=== PATIENT | male | born 1955 | race Caucasian/White ===

== ENCOUNTER → 2024-12-17 | Outpatient (CLI) | payer OTHER ==
[2024-12-17] MEDS: REGADENOSON 0.4 MG/5 ML PF SYG IVP ONE (15:40)
--- NOTE | 2024-12-17 18:02 | HMCSR ---
APPROVED REPORT Height: 5 ft 10in Weight: 219 lbs TEST INDICATIONS Ventricular Tachycardia The imaging protocol used to acquire images was Rest Tc-99m/stress Tc-99m 1 day Consent: The procedure was explained and understood by the patient. Informerd consent was witnessed Jaimie Fregoso RN First, low dose rest was performed then high dose stress. RESTING DATA: The resting ekg shows: NSR Rest SPECT myocardial perfusion imaging was performed in supine position 63 minutes following the int ravenous injection of 10.7 mCi of Tc-99 Sestamibi. Time of rest injection: 08:21: Date: 12/17/2024 Time of rest imagin:24: Date: 12/17/2024 PHARMACOLOGIC STRESS: Pharmacologic stress test was performed by injecting regadenoson 0.4 mg IV push followed by the intra venous injection of 32.1 mCi of Tc-99 Sestamibi. Time of stress injection: 09:53: Date: 12/17/2024 Time of stress imagin:35: Date: 12/17/2024 Heart Rate at time of stress injection: 64 bpm. Gated Stress SPECT was performed 102 minutes after stress injection. The images were gated to evaluate regional wall motion and calculate left ventricular ejection fracti on. STRESS DETAILS Reason for Termination: Infusion complete Stress Symptoms: Dyspnea Max HR Achieved: 61 bpm % of APMHR Achieved: 40 Max Blood Pressure: 142/92 mmHg Stress ECG: NSR Study quality was good. Lung uptake was Normal. Artifact: increased GI uptake LEFT VENTRICLE Size: The left ventricular size is normal. Systolic Function:The left ventricular systolic function is normal. Wall Motion: Cannot assess regional wall motion abnormalities. The left ventricular ejection fraction was calculated to be 52%.TID = . LV PERFUSION There is decreased radiotracer uptake noted of moderate size and mild degree involving the anterior a nd inferior segments present on both the rest and stress images consistent with a fixed defects. GI artifact is noted. There is no evidence of reversible ischemia. Conclusion Abnormal myocardial perfusion scan for fixed inferior and anterior mild defects of moderate size whic h may represent prior MN versus artifact No evidence of reversible ischemia present Preserved ejection fraction calculation at 52% Clinical correlation recommended
== END | disposition home or self-care (01) ==
LOC: SHCH 07:52
PROVIDERS: ATTEND Internal Medicine Cardiovascular Disease
DX: I47.20 Ventricular tachycardia, unspecified (principal); R06.00 Dyspnea, unspecified
CPT/HCPCS: 78452; 93017; J2785; A9500 ×2